=== PATIENT | female | born 1970 | race Caucasian/White ===

== ENCOUNTER 2021-01-27 13:58 | Outpatient (CLI) | payer BC | END 2021-01-27 13:59 | disposition home or self-care (01) | LOC: BICRAD 13:58 | PROVIDERS: ATTEND Physician Assistant | DX: M53.3 Sacrococcygeal disorders, not elsewhere classified (principal) | CPT/HCPCS: 72220 ==

== ENCOUNTER 2021-06-23 07:33 | Outpatient (CLI) | payer BC | END 2021-06-23 07:34 | disposition home or self-care (01) | LOC: BICCT 07:33 | PROVIDERS: ATTEND Family Medicine | DX: R10.2 Pelvic and perineal pain (principal); K86.2 Cyst of pancreas; Z90.49 Acquired absence of other specified parts of digestive tract | CPT/HCPCS: 74177 ==

== ENCOUNTER 2021-06-30 06:50 | Outpatient (CLI) | payer BC | END 2021-06-30 06:51 | disposition home or self-care (01) | LOC: BICULT 06:50 | PROVIDERS: ATTEND Family Medicine | DX: R10.2 Pelvic and perineal pain (principal); R93.5 Abnormal findings on diagnostic imaging of other abdominal regions, including retroperitoneum | CPT/HCPCS: 76856 ==

== ENCOUNTER 2021-07-23 08:45 | Outpatient (CLI) | payer BC | END 2021-07-23 08:46 | disposition home or self-care (01) | LOC: MRI 08:45 | PROVIDERS: ATTEND Family Medicine | DX: R93.5 Abnormal findings on diagnostic imaging of other abdominal regions, including retroperitoneum (principal); K86.2 Cyst of pancreas | CPT/HCPCS: 74183 ==

== ENCOUNTER 2022-07-01 09:03 | Outpatient (CLI) | payer BC ==
[~2022-07-01 09:03] MED LIST: Iopamidol 370 76% 100 ML VIAL ONE
== END 2022-07-01 09:04 | disposition home or self-care (01) ==
LOC: CT 09:03
PROVIDERS: ATTEND Family Medicine
DX: Q45.3 Other congenital malformations of pancreas and pancreatic duct (principal); K86.9 Disease of pancreas, unspecified
CPT/HCPCS: 74170; Q9967